=== PATIENT | male | born 1940 | race Caucasian/White ===

== ENCOUNTER 2022-12-06 18:13 | Emergency (ER) | payer MEDICARE, SELFPAY ==
[2022-12-06] VITALS (9 sets, daily range): BP systolic 127–144; BP diastolic 66–78; PULSE 69–81; RESP 15–20; TEMP 36.7; O2SAT 92–100
--- NOTE | ~2022-12-06 | CT_ITS ---
EXAMINATION: CT brain wo con DATE: 12/06/2022 20:08 INDICATION: AMS . TECHNIQUE: Computed tomography (CT) of the head was performed without intravenous contrast. The mA wa s adjusted according to patient size. Iterative reconstruction technique was employed. The dose-lengt h product was 681.00 mGy-cm. COMPARISON: 01/07/2016. FINDINGS: No acute intracranial hemorrhage or extra-axial fluid collection. No hydrocephalus, mass, or herniation. No acute ischemic infarct. Unremarkable dural venous sinus attenuation. No acute osseous abnormality. The aerated spaces are clear. Moderate atrophy and chronic white matter change. Atherosclerotic intracranial calcification. Bilater al basal ganglia lacunar infarcts. IMPRESSION: No acute intracranial process. Reviewed, dictated and finalized at location K.
--- NOTE | ~2022-12-06 | XR_ITS ---
EXAMINATION: XR chest 2V Exam Date/Time: 12/06/2022 19:50 CDT HISTORY: cough, AMS Comparison: 04/06/2018. RESULT: Lines, tubes, and devices: None. Lungs and pleura: Senescent and emphysematous change, otherwise clear. Cardiomediastinal silhouette: Stable. Other: No acute osseous or upper abdominal finding. IMPRESSION: No acute cardiopulmonary process. Reviewed, dictated and finalized at location K.
--- NOTE | 2022-12-06 19:24 | ECG_ITS ---
Measurements Intervals [place] Rate: 68 P: 74 DC: 137 QRS: 25 QRSD: 105 T: 79 QT: 373 QTc: 397 Interpretive Statements SINUS RHYTHM ANTEROSEPTAL INFARCT, AGE INDETERMINATE BORDERLINE T WAVE ABNORMALITY- HIGH LATERAL LEADS BASELINE ARTIFACT- I, II, III, V1-V2, V5 ABNORMAL ECG NO PREVIOUS ECG AVAILABLE FOR COMPARISON Electronically Signed On 12-07-2022 6:20:29 CDT by Shawn Russo D.O.
--- NOTE | 2022-12-06 19:27 | ED.AMS ---
HPI - Altered Mental Status General Chief Complaint: Altered Mental Status Stated Complaint: INTERMITTENT CONFUSION SINCE SEPTEMBER Time Seen by Provider: 12/06/22 19:11 History of Present Illness HPI narrative: Patient is an 82-year-old male presenting with intermittent confusion. Patient's daughter is at bedside and helps with the history. States that this has been going on for several months. He has episodes where he seems disoriented and confused. These episodes then resolve and he returns to baseline. States that currently he is at baseline but earlier he was disoriented. They are in the middle of getting him set up with a new PCP and his appointment is not for several more weeks. Currently he denies any complaints. No pain. No difficulty breathing. No fevers. No nausea or vomiting. No numbness or weakness. Related Data Allergies Allergy/AdvReac Type Severity Reaction Status Date / Time No Known Allergies Allergy Unverified 01/31/17 10:26 Review of Systems Review of Systems: All systems reviewed & are unremarkable except as noted in HPI and below Exam Narrative: GENERAL: Elderly male sitting up in bed in no acute distress HEAD: Normocephalic, atraumatic. EYES: PERRLA and EOMI. ENT: Mucous membranes moist. NECK: Supple. CHEST: Clear to auscultation. No respiratory distress. HEART: Regular rate and rhythm ABDOMEN: Soft, nontender, nondistended EXTREMITIES: Normal range of motion. No edema. SKIN: Warm, dry, no rash. NEURO: No focal deficits. Alert and oriented x3. No pronator drift, 5 out of 5 strength in all extremities, no aphasia or dysarthria appreciated, no facial droop PSYCH: Normal mood and affect. Course Vital Signs Vital signs: Vital Signs Temperature 98.0 F 12/06/22 18:24 Pulse Rate 81 12/06/22 18:24 Respiratory Rate 17 12/06/22 18:24 Blood Pressure 127/73 12/06/22 18:24 Pulse Oximetry 100 12/06/22 18:24 Oxygen Delivery Room Air 12/06/22 18:24 Temperature 98.0 F 12/06/22 18:24 Pulse Rate 72 12/06/22 21:48 Respiratory Rate 15 12/06/22 21:48 Blood Pressure 144/66 H 12/06/22 21:48 Pulse Oximetry 100 12/06/22 21:48 Oxygen Delivery Room Air 12/06/22 18:24 MDM - Altered Mental Status MDM Narrative Medical decision making narrative: 82-year-old male presenting with episodes of intermittent confusion. Vitals are stable. Exam remarkable for the above. He is ANO x3 on my evaluation. Neurologically intact. EKG per my interpretation shows normal sinus rhythm, no acute ischemic changes. Blood work with mild hypokalemia. Creatinine is 1.50, no priors for comparison. UA is not infected. Negative for COVID and influenza. Chest x-ray without acute abnormalities. CT brain without acute abnormalities. Potassium will be repleted here. Discussed the reassuring work-up. Advise he try to drink more fluids. Patient's daughter states that he has appointments coming up with primary care. Strongly advised that he keep these. Feel he is safe for outpatient management. He denies any complaints but he remains ANO x3. Appropriate return precautions given. Discharged in stable condition. Differential Diagnosis Differential diagnosis: Likely altered mental status, delirium, dementia, hypoglycemia and hyponatremia Medical Records Attestation: I reviewed the patient's medical records. Lab Data Attestation: I reviewed the patient's lab results. 12/06/22 19:35 12/06/22 19:35 Labs: Lab Results 12/06/22 12/06/22 Range/Units 19:35 20:41 WBC 7.4 (4.5-10.0) K/mm3 RBC 4.45 L (4.6-6.20) M/mm3 Hgb 14.0 (14.0-18.0) g/dL Hct 43.3 (42.0-52.0) % MCV 97.3 (80-100) fl MCH 31.5 (26-34) pg MCHC 32.3 (32-36) g/dl RDW 14.1 (11.5-14.5) % Plt Count 216 (150-375) k/mm3 MPV 9.2 (7.4-10.4) fl Immature Gran % (Auto) 0.4 (0-0.5) % Neut % (Auto) 76.4 H (45.5-73.1) % Lymph % (Auto) 15.1 L (18.3-44.2) %
[2022-12-06] MEDS: SODIUM CHLORIDE 0.9% IV 1,000 ML 999 ML IV CONT (19:40)
[2022-12-06 19:54] LABS: Basophils Percent Auto 0.4 % (0.2-1.2); Eosinophils Absolute Auto 0.1 K/mm3 (0-0.3); Eosinophils Percent Auto 1.1 % (0-4.4); Hematocrit 43.3 % (42.0-52.0); Immature Granulocyte Absolute 0.03 K/mm3 (0.00-0.031); Immature Granulocyte Percent A 0.4 % (0-0.5); Lymphocytes Absolute Auto 1.12 K/mm3 (0.9-3.2); Lymphocytes Percent Auto 15.1 % (18.3-44.2); Mean Corpuscular HGB Conc 32.3 g/dl (32-36); Mean Corpuscular Hemoglobin 31.5 pg (26-34); Mean Corpuscular Volume 97.3 fl (80-100); Mean Platelet Volume 9.2 fl (7.4-10.4); Monocytes Absolute Auto 0.5 K/mm3 (0.1-0.6); Monocytes Percent Auto 6.6 % (2.6-8.5); Neutrophils Absolute Auto 5.7 K/mm3 (1.3-6.7); Neutrophils Percent Auto 76.4 % (45.5-73.1); Platelet Count Result 216 k/mm3 (150-375); Red Blood Count 4.45 M/mm3 (4.6-6.20); Red Cell Distribution Width 14.1 % (11.5-14.5); White Blood Count 7.4 K/mm3 (4.5-10.0)
[2022-12-06 20:01] LABS: Alanine Aminotransferase 13 U/L (6-50); Albumin Level 3.8 g/dL (3.5-5.1); Alkaline Phosphatase 52 U/L (38-126); Anion Gap 10 mmol/L (8-16); Aspartate Amino Transferase 24 U/L (17-59); Bilirubin,Total 0.7 mg/dL (0.2-1.3); Blood Urea Nitrogen 22 mg/dL (9-20); Calcium 9.1 mg/dL (8.4-10.2); Carbon Dioxide 25 mmol/L (22-30); Chloride 101 mmol/L (98-107); Estimated CRCL calculation 36 ml/min; Estimated Glomerular Filt Rate 45; Glucose 94 mg/dL (65-110); Potassium 3.2 mmol/L (3.4-5.0); Sodium 136 mmol/L (137-145)
[2022-12-06 20:20] LABS: Influenza A QL RT-PCR Negative (Negative); Influenza B QL RT-PCR Negative (Negative); SARS-CoV-2 RNA PCR Negative (Negative)
[2022-12-06 21:00] LABS: Add Urine Microscopic? YES; Appearance Urine Clear (Clear); Bacteria Urine None Seen /hpf; Bilirubin Urine Negative (Negative); Blood Urine Trace (Negative); Color Urine Yellow (Yellow); Glucose Urine UA Negative (Negative); Ketones Urine Negative (Negative); Leukocyte Esterase Ur Negative LEU/UL (Negative); Need Manual Microscopic Reviewed; Nitrate Urine Negative (Negative); Non Pathogenic Casts 0-2; Protein Urine Negative (Negative); RBC Urine 0-2 /hpf (0-2); Specific Grav Ur 1.004 (1.001-1.035); Squamous Epithelial Cell Urine None seen /hpf (Few); Urobilinogen Urine 0.2 mg/dL (<2.0); WBC Urine 0-5 /hpf; pH Urine 5.5 (5.0-9.0)
[2022-12-06] MEDS: POTASSIUM CHLORIDE 20 MEQ ER TABLET 40 MEQ PO (21:40)
== END 2022-12-06 21:48 | disposition home or self-care (01) ==
PROVIDERS: Emergency Provider Emergency Medicine; PCP Internal Medicine Endocrinology, Diabetes & Metabolism
DX: R41.82 Altered mental status, unspecified (principal); E87.6 Hypokalemia; R94.31 Abnormal electrocardiogram [ECG] [EKG]; Z20.822 Contact with and (suspected) exposure to COVID-19
CPT/HCPCS: 36415; 70450; 71046; 80053; 81001; 84484; 85025; 87636; 93005; 96360; 96361; 99284; A9270; J7030